=== PATIENT | male | born 1945 | race Caucasian/White ===

== ENCOUNTER 2016-08-03 01:57 | Emergency (ER) | payer OTHER ==
[2016-08-03 02:29] LABS: BASO % 0.7 % (0.2-1.2); EOS # 0.1 10_X3_uL (0.0-0.5); EOS % 1.1 % (0.8-7.0); GRAN # 3.5 10_X3_uL (1.8-5.4); GRAN % 57.3 % (34.0-67.9); HEMATOCRIT 41.6 % (40-51); HEMOGLOBIN 14.6 g/dL (13.7-17.5); LYMPH # 2.1 10_X3_uL (1.3-3.6); LYMPH % 33.9 % (21.8-53.1); MEAN CORPUSCULAR HEMOGLOBIN 33.1 pg (27.0-33.0); MEAN CORPUSCULAR HGB CONC 35.1 g/dL (32.0-36.0); MEAN CORPUSCULAR VOLUME 94.3 fL (79-92); MEAN PLATELET VOLUME 9.9 fl (7.5-11.5); MONO # 0.4 10_X3_uL (0.3-0.8); PLATELET COUNT 141 x10_3/uL (163-337); RED BLOOD COUNT 4.41 x10_6/uL (4.6-6.1); RED CELL DISTRIBUTION WIDTH 14.4 % (11.6-14.4); WHITE BLOOD COUNT 6.1 x10_3/uL (4.2-9.1)
[2016-08-03 02:31] LABS: TROP-I < 0.30 NG/ML (0.00-0.30)
[2016-08-03 02:37] LABS: ALBUMIN 4.1 gm/dL (3.4-5.0); ALKALINE PHOSPHATASE 69 U/L (50-136); ALT/SGPT 25 U/L (7.53-40.17); AST/SGOT 24 U/L (6.66-35.34); BILIRUBIN,TOTAL 0.54 mg/dL (0.0-1.0); BLOOD UREA NITROGEN 18 mg/dL (7-18); CALCIUM 9.1 mg/dL (8.7-10.7); CARBON DIOXIDE 21 mmol/L (21-32); CREATINE KINASE 61 U/L (35-232); CREATININE 0.7 mg/dL (0.6-1.3); GLUCOSE,RANDOM 293 mg/dL (70-99); INR 1.2 (1.0-1.1); PARTIAL THROMBOPLASTIN TIME 27.4 SECONDS (21.8-28.4); POTASSIUM 4.8 mmol/L (3.5-5.1); PROTHROMBIN TIME (PATIENT) 11.7 SECONDS (9.6-10.8); SODIUM 136 mmol/L (136-145); TOTAL PROTEIN 7.4 gm/dL (6.4-8.2)
== END 2016-08-03 03:30 | disposition short-term general hospital (02) ==
LOC: ER 01:57
PROVIDERS: General Practice
DX: I62.9 Nontraumatic intracranial hemorrhage, unspecified (principal); R29.810 Facial weakness; R53.83 Other fatigue; Z88.5 Allergy status to narcotic agent; Z79.02 Long term (current) use of antithrombotics/antiplatelets
CPT/HCPCS: 36415; 51702; 70450; 71010; 80053; 82550; 82553; 85025; 85610; 85730; 92950; 94002; 96365; 96375; 96376; 99070; 99284; 99285-25; J2250; J3010